=== PATIENT | male | born 1965 | race African-American/Black ===

== ENCOUNTER 2016-08-09 11:52 | Inpatient (IN) | payer BC ==
[2016-08-09 12:55] VITALS: BMI 23.5
--- NOTE | 2016-08-09 17:19 | HP ---
CIWA Score - CIWA Score Nausea/Vomitin-Mild Nausea/No Vomiting Muscle Tremors: 4-Moderate,w/Arms Extend Anxiety: 4-Mod. Anxious/Guarded Agitation: 4-Moderately Restless Paroxysmal Sweats: 1-Minimal Palms Moist Orientation: 3-Disoriented Date>2 days Tacttile Disturbances: 0-None Auditory Disturbances: 0-None Visual Disturbances: 0-None Headache: 0-None Present CIWA-Ar Total Score: 17 Admission ROS S - HPI Chief Complaint: WITHDRAWAL SX Allergies/Adverse Reactions: Allergies Allergy/AdvReac Type Severity Reaction Status Date / Time Penicillins Allergy Verified 04/18/16 19:32 History of Present Illness: 50 YEARS OLD MALE WITH LONG HISTORY OF ALCOHOL NICOTINE DEPENDENCE, HAS ASTHMA, DEPRESSION, LONGEST SOBRIETY 2 YEARS IS ADMITTED TO DETOX Exam Limitations: No Limitations - Ebola screening Have you traveled outside of the country in the last 21 days: No Have you had contact with anyone from an Ebola affected area: No Have you been sick,other than usual withdrawal symptoms: No Do you have a fever: No - Review of Systems Constitutional: Chills, Loss of Appetite, Changes in sleep, Unexplained wgt Loss EENT: reports: No Symptoms Reported Respiratory: reports: No Symptoms reported Cardiac: reports: No Symptoms Reported GI: reports: Poor Appetite, Poor Fluid Intake, Indigestion, Abdominal cramping : reports: No Symptoms Reported Musculoskeletal: reports: No Symptoms Reported Integumentary: reports: No Symptoms Reported Neuro: reports: Seizure (LAST EPISODE 2011), Tremors Endocrine: reports: No Symptoms Reported Hematology: reports: No Symptoms Reported Psychiatric: reports: Judgement Intact, Depressed Other Systems: Reviewed and Negative Patient History - Patient Medical History Hx Anemia: No Hx Asthma: Yes Hx Chronic Obstructive Pulmonary Disease (COPD): No Hx Cancer: No Hx Cardiac Disorders: No Hx Congestive Heart Failure: No Hx Hypertension: Yes (LAST DOSE "YEAR" AGO) Hx Hypercholesterolemia: No Hx Pacemaker: No HX Cerebrovascular Accident: No Hx Seizures: Yes (2011) Hx Dementia: No Hx Diabetes: No Hx Gastrointestinal Disorders: No Hx Liver Disease: No Hx Genitourinary Disorders: No Hx Sexually Transmitted Disorders: No Hx Renal Disease (ESRD): No Hx Thyroid Disease: No Hx Human Immunodeficiency Virus (HIV): No Hx Hepatitis C: No Hx Depression: No Hx Suicide Attempt: No Hx Bipolar Disorder: No Hx Schizophrenia: No - Patient Surgical History Past Surgical History: No - PPD History Previous Implant?: Yes Documented Results: Negative w/proof Implanted On Prior R Admission?: Yes Date: 04/20/16 PPD to be Administered?: No - Smoking Cessation Smoking history: Current every day smoker Have you smoked in the past 12 months: Yes Aproximately how many cigarettes per day: 3 Cigars Per Day: 0 Hx Chewing Tobacco Use: No Initiated information on smoking cessation: Yes 'Breaking Loose' booklet given: 08/09/16 - Substance & Tx. History Hx Alcohol Use: Yes Hx Substance Use: No Substance Use Type: Alcohol Hx Substance Use Treatment: Yes - Substances Abused Alcohol Route: Oral Frequency: Daily Amount used: 3 PINTS VOLKA Age of first use: 14 Date of Last Use: 08/09/16 Family Disease History - Family Disease History Family Disease History: Other: Father (NEVER MEET), Mother (), Brother ( ONLY CHILD) Admission Physical Exam BHS - Vital Signs Vital Signs: Vital Signs - 24 hr 08/09/16 12:37 Temperature 96.4 F L Pulse Rate 78 Respiratory 18 Rate Blood Pressure 145/105 - Physical General Appearance: Yes: Appropriately Dressed, Moderate Distress, Alcohol on Breath, Thin, Tremorous, Irritable, Sweating, Anxious HEENTM: Yes: Hearing grossly Normal, Normal ENT Inspection, Normocephalic, Normal Voice Respiratory: Yes: Chest Non-Tender, Lungs Clear, Normal Breath Sounds, No Respiratory Distress, No Accessory Muscle Use Neck: Yes: Supple, Trachea in good position Breast: Yes: Breasts Symetrical Cardiology: Yes: Regular Rhythm, Regular Rate, S1, S2 Abdominal: Yes: Non Tender, Soft Genitourinary: Yes: Within Normal Limits Back: Yes: Normal Inspection Musculoskeletal: Yes: full range of Motion, Gait Steady Extremities: Yes: Normal Inspection, Normal Range of Motion, Non-Tender, Tremors Neurological: Yes: Alert, Motor Strength 5/5, Normal Response, Depressed Affect Integumentary: Yes: Warm, Moist Lymphatic: Yes: Within Normal Limits - Diagnostic (1) Alcohol dependence with withdrawal Current Visit: Yes Status: Acute Qualifiers: Complication of substance-induced condition: uncomplicated Qualified Code(s): F10.230 - Alcohol dependence with withdrawal, uncomplicated (2) Nicotine dependence Current Visit: Yes Status: Acute Qualifiers: Nicotine product type: cigarettes Substance use status: uncomplicated Qualified Code(s): F17.210 - Nicotine dependence, cigarettes, uncomplicated (3) Asthma Current Visit: Yes Status: Acute Qualifiers: Asthma severity: mild persistent Asthma complication type: uncomplicated Qualified Code(s): J45.30 - Mild persistent asthma, uncomplicated (4) Hypertension Current Visit: Yes Status: Resolved Qualifiers: Hypertension type: other secondary hypertension Qualified Code(s): I15.8 - Other secondary hypertension Comment: LAST ANTIHYPERTENSANT "YEAR" AGO (5) Seizure Current Visit: Yes Status: Resolved Comment: FIRST / LAST 2011, NO TREATMENT Cleared for Admission S - Detox or Rehab [facility] Level of Care: Medically Managed Detox Regimen/Protocol: Librium S Breath Alcohol Content Breath Alcohol Content: 0.261 Urine Drug Screen - Results Drug Screen Negative: Yes
[2016-08-09] MEDS ORDERED: MAG HYDROX/AL HYDROX/SIMETH 30 ML UNIT-DOSE CUP PO PRN (17:31)
[2016-08-09] MEDS ORDERED: chlordiazePOXIDE HCL 25 MG CAPSULE PO PRN (17:31)
[2016-08-09] MEDS ORDERED: NICOTINE POLACRILEX 2 MG GUM BC PRN (17:31)
[2016-08-09] MEDS ORDERED: hydrOXYzine PAMOATE 50 MG CAPSULE (FP) PO PRN (17:31)
[2016-08-09] MEDS ORDERED: MAGNESIUM HYDROX 2400MG/30ML ORAL SUSPENSION 30 ML CUP PO PRN (17:31)
[2016-08-09] MEDS ORDERED: LOPERAMIDE HCL 2 MG CAPSULE PO PRN (17:31)
[2016-08-09] MEDS ORDERED: MAGNESIUM CITRATE 300 ML BOTTLE PO PRN (17:31)
[2016-08-09] MEDS ORDERED: P-EPHED 60MG/TRIPROLIDI 2.5MG TABLET PO PRN (17:31)
[2016-08-09] MEDS ORDERED: ACETAMINOPHEN 325 MG TABLET (FP) PO PRN (17:31)
[2016-08-09] MEDS ORDERED: NICOTINE 14 MG/24 HOURS TOPICAL PATCH TD PRN (17:31)
[2016-08-09] MEDS ORDERED: guaiFENesin/D-METHORPHAN HB 10 ML UNIT-DOSE CUPS PO PRN (17:31)
[2016-08-09] MEDS ORDERED: IBUPROFEN 400 MG TABLET (FP) PO PRN (17:31)
[2016-08-09] MEDS ORDERED: MENTHOL/PHENOL 1 EACH UD MM PRN (17:31)
[2016-08-09] MEDS ORDERED: ALBUTEROL SO4 6.7 GM HFA INHALER IH PRN (17:32)
[2016-08-09] MEDS ORDERED: chlordiazePOXIDE HCL 25 MG CAPSULE PO ONE (18:00)
[2016-08-09] MEDS: THIAMINE HCL 100 MG TABLET (FP) PO SCH (22:34)
[2016-08-09] MEDS: diphenhydrAMINE HCL 50 MG CAPSULE PO PRN (22:34)
[2016-08-09] MEDS: chlordiazePOXIDE HCL 25 MG CAPSULE PO SCH (22:35)
[2016-08-10] MEDS: chlordiazePOXIDE HCL 25 MG CAPSULE PO SCH ×4 (05:40→22:33)
[2016-08-10] MEDS: PRENATAL VITAMINS W/ FOLIC ACID TABLET (FP) PO SCH (10:20)
[2016-08-10 10:33] LABS: MCH 32.5 pg (25.7-33.7); MCHC 32.7 g/dl (32.0-35.9); MEAN CELL VOLUME 99.6 fl (80-96); MEAN PLT VOLUME 10.3 fl (7.5-11.1); PLATELET COUNT 64 K/MM3 (134-434); RDW 13.1 % (11.9-15.9); WHITE BLOOD COUNT 3.2 K/mm3 (4.0-10.0)
[2016-08-10 10:40] LABS: URINE APPEARANCE CLEAR; URINE BILIRUBIN NEGATIVE (NEGATIVE); URINE COLOR LTYELLOW; URINE GLUCOSE (UA) NEGATIVE (NEGATIVE); URINE KETONE NEGATIVE (NEGATIVE); URINE LEUK ESTERASE NEGATIVE (NEGATIVE); URINE NITRITE NEGATIVE (NEGATIVE); URINE UROBILINOGEN 4.0 E.U/dl E.U./dl (0.2-1.0)
[2016-08-10 10:47] LABS: ALBUMIN 3.7 g/dl (3.4-5.0); ANION GAP 10 (8-16); CALCIUM 8.8 mg/dL (8.5-10.1); CO2 28 mmol/L (21-32); CREATININE 1.2 mg/dL (0.7-1.3); GLUCOSE,RANDOM 82 mg/dL (74-106); SGOT/AST 350 U/L (15-37); TOT PROT 7.6 g/dl (6.4-8.2)
[2016-08-10 10:52] LABS: ALK PHOS 56 U/L (45-117); SGPT/ALT 88 U/L (12-78)
[2016-08-10 11:08] LABS: URINE BLOOD 1+ (NEGATIVE); URINE PROTEIN 1+ (NEGATIVE)
--- NOTE | 2016-08-10 11:57 | CONSULT ---
[facility] Psychiatric Consult - Data Date of interview: 08/10/16 Admission source: [facility] Identifying data: Readmission to [facility] for this 50 y/o AA male seeking detox treatment for alcohol dependence.Patient is ,a father of two, homeless (intermediate),unemployed and reportedly deprived of any source of income. Substance Abuse History: - Smoking Cessation. Smoking history: Current every day smoker. Have you smoked in the past 12 months: Yes. Aproximately how many cigarettes per day: 3. Cigars Per Day: 0. Hx Chewing Tobacco Use: No. Initiated information on smoking cessation: Yes. 'Breaking Loose' booklet given : 08/09/16. - Substance & Tx. History. Hx Alcohol Use: Yes. Hx Substance Use : No. Substance Use Type: Alcohol. Hx Substance Use Treatment: Yes. - Substances Abused. Alcohol. Route: Oral. Frequency: Daily. Amount used: 3 PINTS VOLKA. Age of first use: 14. Date of Last Use: 08/09/16. Patient confirmed. Medical History: Remarkable for bronchial asthma,hypertension and a history of withdrawal seizures (2011). Psychiatric History: Patient denies. Physical/Sexual Abuse/Trauma History: Patient denies. Additional Comment: Drug screen is negative. Mental Status Exam - Mental Status Exam Alert and Oriented to: Time, Place, Person Cognitive Function: Good Patient Appearance: Well Groomed Mood: Withdrawn, Anxious Affect: Normal Range Patient Behavior: Sedated (mild sedation), Fatigued Speech Pattern: Clear, Appropriate Voice Loudness: Normal Thought Process: Goal Oriented Thought Disorder: Not Present Hallucinations: Denies Suicidal Ideation: Denies Homicidal Ideation: Denies Insight/Judgement: Fair Sleep: Well (as per self-report) Appetite: Good Muscle strength/Tone: Normal Gait/Station: Normal Psychiatric Findings - Problem List ([place] 1, 2,3) (1) Alcohol dependence with withdrawal Current Visit: Yes Status: Acute Qualifiers: Complication of substance-induced condition: uncomplicated Qualified Code(s): F10.230 - Alcohol dependence with withdrawal, uncomplicated (2) Nicotine dependence Current Visit: Yes Status: Acute Qualifiers: Nicotine product type: cigarettes Substance use status: uncomplicated Qualified Code(s): F17.210 - Nicotine dependence, cigarettes, uncomplicated (3) Asthma Current Visit: Yes Status: Chronic Qualifiers: Asthma severity: mild persistent Asthma complication type: uncomplicated Qualified Code(s): J45.30 - Mild persistent asthma, uncomplicated (4) Hypertension Current Visit: Yes Status: Resolved Qualifiers: Hypertension type: other secondary hypertension Qualified Code(s): I15.8 - Other secondary hypertension Comment: LAST ANTIHYPERTENSANT "YEAR" AGO (5) Seizure Current Visit: Yes Status: Resolved Comment: FIRST / LAST 2011, NO TREATMENT - Initial Treatment Plan Initial Treatment Plan: Psychoeducation.Detoxification.Observation.
[2016-08-10] MEDS: cloNIDine HCL 0.1 MG TABLET PO PRN (18:29)
--- NOTE | 2016-08-10 21:47 | PN ---
[id number] 3 Anxiety: 3 Agitation: 3 Paroxysmal Sweats: 3 Orientation: 0-Oriented Tacttile Disturbances: 0-None Auditory Disturbances: 0-None Visual Disturbances: 0-None Headache: 0-None Present CIWA-Ar Total Score: 12 BHS Progress Note (SOAP) Subjective: ANXIETY,TREMORS,SWEATING,INTERRUPTED SLEEP,RESTLESS. Objective: 08/10/16 21:44 Vital Signs - 8 hr 08/10/16 08/10/16 14:43 20:09 Temperature 97.3 F L 99.2 F Pulse Rate 73 74 Respiratory 18 20 Rate Blood Pressure 145/99 146/104 Assessment: 08/10/16 21:46 withdrawal sx Plan: CONTINUE DETOX
[2016-08-10] MEDS: THIAMINE HCL 100 MG TABLET (FP) PO SCH (22:33)
[2016-08-10] MEDS: diphenhydrAMINE HCL 50 MG CAPSULE PO PRN (22:33)
[2016-08-11] MEDS: chlordiazePOXIDE HCL 25 MG CAPSULE PO SCH ×3 (05:19→17:53)
[2016-08-11] MEDS: PRENATAL VITAMINS W/ FOLIC ACID TABLET (FP) PO SCH (10:38)
--- NOTE | 2016-08-11 16:11 | PN ---
S CIWA - CIWA Score Nausea/Vomitin-Mild Nausea/No Vomiting Muscle Tremors: 4-Moderate,w/Arms Extend Anxiety: 4-Mod. Anxious/Guarded Agitation: 3 Paroxysmal Sweats: No Perspiration Orientation: 0-Oriented Tacttile Disturbances: 0-None Auditory Disturbances: 0-None Visual Disturbances: 0-None Headache: 2-Mild CIWA-Ar Total Score: 14 S Progress Note (SOAP) Subjective: Tremor, sweating, anxiety, poor sleep (benadryl ineffective, wants ambien) Objective: 08/11/16 16:08 Last Vital Signs Temp Pulse Resp BP Pulse Ox 96.2 F L 69 20 120/87 08/11/16 13:52 08/11/16 13:52 08/11/16 13:52 08/11/16 13:52 Laboratory Tests 08/10/16 08/10/16 08/10/16 07:30 07:30 07:30 WBC 3.2 L RBC 3.36 L Hgb 10.9 L Hct 33.4 L MCV 99.6 H MCHC 32.7 RDW 13.1 Plt Count 64 L D MPV 10.3 D Sodium 140 Potassium 3.9 Chloride 102 Carbon Dioxide 28 Anion Gap 10 BUN 21 H Creatinine 1.2 Creat Clearance w eGFR > 60 Random Glucose 82 Calcium 8.8 Total Bilirubin 1.0 AST 350 H D ALT 88 H D Alkaline Phosphatase 56 Total Protein 7.6 Albumin 3.7 Urine Color Urine Appearance Urine pH Ur Specific [place] Urine Protein Urine Glucose (UA) Urine Ketones Urine Blood Urine Nitrite Urine Bilirubin Urine Urobilinogen Ur Leukocyte Esterase RPR Titer Nonreactive 08/10/16 07:30 WBC RBC Hgb Hct MCV MCHC RDW Plt Count MPV Sodium Potassium Chloride Carbon Dioxide Anion Gap BUN Creatinine Creat Clearance w eGFR Random Glucose Calcium Total Bilirubin AST ALT Alkaline Phosphatase Total Protein Albumin Urine Color Ltyellow Urine Appearance Clear Urine pH 7.0 D Ur Specific [place] 1.011 Urine Protein 1+ H D Urine Glucose (UA) Negative Urine Ketones Negative Urine Blood 1+ H Urine Nitrite Negative Urine Bilirubin Negative Urine Urobilinogen 4.0 e.u/dl Ur Leukocyte Esterase Negative RPR Titer Labs noted: abnormal UA Assessment: 08/11/16 16:09 Withdrawal symptoms Noted with abnormal UA (proteinuria, hematuria) Plan: Continue detox; ambien 10mg PO qhs prn for interrupted sleep Abnormal UA: encourage to drink lots of water, repeat UA
[2016-08-11] MEDS: THIAMINE HCL 100 MG TABLET (FP) PO SCH (22:20)
[2016-08-11] MEDS: chlordiazePOXIDE 5 MG CAPSULE PO SCH (22:20)
[2016-08-11] MEDS: ZOLPIDEM TARTRATE 10 MG TABLET (PARK CARE ONLY) PO PRN (22:20)
[2016-08-12] MEDS: chlordiazePOXIDE 5 MG CAPSULE PO SCH ×3 (05:43→16:58)
[2016-08-12] MEDS: cloNIDine HCL 0.1 MG TABLET PO PRN (10:09)
[2016-08-12] MEDS: PRENATAL VITAMINS W/ FOLIC ACID TABLET (FP) PO SCH (10:09)
--- NOTE | 2016-08-12 10:45 | PN ---
BHS Progress Note (SOAP) Subjective: SWEATING,INTERRUPTED SLEEP,RESTLESS. Objective: 08/12/16 10:44 Vital Signs - 8 hr 08/12/16 08/12/16 08/12/16 03:18 06:16 10:12 Temperature 98.4 F 96.0 F L Pulse Rate 60 65 Respiratory 18 18 19 Rate Blood Pressure 135/96 142/100 Laboratory Last Values WBC 3.2 K/mm3 (4.0-10.0) L 08/10/16 07:30 RBC 3.36 M/mm3 (4.00-5.60) L 08/10/16 07:30 Hgb 10.9 GM/dL (11.7-16.9) L 08/10/16 07:30 Hct 33.4 % (35.4-49) L 08/10/16 07:30 MCV 99.6 fl (80-96) H 08/10/16 07:30 MCHC 32.7 g/dl (32.0-35.9) 08/10/16 07:30 RDW 13.1 % (11.9-15.9) 08/10/16 07:30 Plt Count 64 K/MM3 (134-434) L D 08/10/16 07:30 MPV 10.3 fl (7.5-11.1) D 08/10/16 07:30 Sodium 140 mmol/L (136-145) 08/10/16 07:30 Potassium 3.9 mmol/L (3.5-5.1) 08/10/16 07:30 Chloride 102 mmol/L (98-107) 08/10/16 07:30 Carbon Dioxide 28 mmol/L (21-32) 08/10/16 07:30 Anion Gap 10 (8-16) 08/10/16 07:30 BUN 21 mg/dL (7-18) H 08/10/16 07:30 Creatinine 1.2 mg/dL (0.7-1.3) 08/10/16 07:30 Creat Clearance w eGFR > 60 (>60) 08/10/16 07:30 Random Glucose 82 mg/dL (74-106) 08/10/16 07:30 Calcium 8.8 mg/dL (8.5-10.1) 08/10/16 07:30 Total Bilirubin 1.0 mg/dL (0.2-1.0) 08/10/16 07:30 AST 350 U/L (15-37) H D 08/10/16 07:30 ALT 88 U/L (12-78) H D 08/10/16 07:30 Alkaline Phosphatase 56 U/L (45-117) 08/10/16 07:30 Total Protein 7.6 g/dl (6.4-8.2) 08/10/16 07:30 Albumin 3.7 g/dl (3.4-5.0) 08/10/16 07:30 Urine Color Ltyellow 08/10/16 07:30 Urine Appearance Clear 08/10/16 07:30 Urine pH 7.0 (5.0-8.0) D 08/10/16 07:30 Ur Specific [place] 1.011 (1.001-1.035) 08/10/16 07:30 Urine Protein 1+ (NEGATIVE) H D 08/10/16 07:30 Urine Glucose (UA) Negative (NEGATIVE) 08/10/16 07:30 Urine Ketones Negative (NEGATIVE) 08/10/16 07:30 Urine Blood 1+ (NEGATIVE) H 08/10/16 07:30 Urine Nitrite Negative (NEGATIVE) 08/10/16 07:30 Urine Bilirubin Negative (NEGATIVE) 08/10/16 07:30 Urine Urobilinogen 4.0 e.u/dl E.U./dl (0.2-1.0) 08/10/16 07:30 Ur Leukocyte Esterase Negative (NEGATIVE) 08/10/16 07:30 RPR Titer Nonreactive (NONREACTIVE) 08/10/16 07:30 LABS NOTED AST 350 & ALT 88, REPEAT ORDERED Assessment: 08/12/16 10:45 WITHDRAWAL SX. Plan: CONTINUE DETOX
[2016-08-12 20:53] LABS: URINE APPEARANCE CLEAR; URINE BILIRUBIN NEGATIVE (NEGATIVE); URINE BLOOD TRACE-INTA (NEGATIVE); URINE COLOR LT. YELLOW; URINE GLUCOSE (UA) NEGATIVE (NEGATIVE); URINE KETONE NEGATIVE (NEGATIVE); URINE LEUK ESTERASE NEGATIVE (NEGATIVE); URINE NITRITE NEGATIVE (NEGATIVE); URINE PROTEIN NEGATIVE (NEGATIVE); URINE UROBILINOGEN 1.0 E.U/dl E.U./dl (0.2-1.0)
[2016-08-12] MEDS: chlordiazePOXIDE HCL 10 MG CAPSULE PO SCH (22:22)
[2016-08-12] MEDS: THIAMINE HCL 100 MG TABLET (FP) PO SCH (22:22)
[2016-08-12] MEDS: ZOLPIDEM TARTRATE 10 MG TABLET (PARK CARE ONLY) PO PRN (22:23)
[2016-08-13] MEDS ORDERED: diphenhydrAMINE HCL 25 MG CAPSULE (FP) PO ONE (01:07)
[2016-08-13] MEDS: diphenhydrAMINE HCL 50 MG CAPSULE PO PRN (01:08)
[2016-08-13] MEDS: chlordiazePOXIDE HCL 10 MG CAPSULE PO SCH (05:45)
[2016-08-13 06:20] VITALS: BP 151/97; PULSE 59; TEMP 98.1
--- NOTE | 2016-08-13 09:53 | DS ---
[facility] Detox Discharge Summary Admission Date: 08/09/16 Discharge Date: 08/13/16 - History Present History: Alcohol Dependence Additional Comments: NONE Pertinent Past History: ??HTN ASTHMA ??SEIZURE DISORDER - Physical Exam Results Vital Signs: Vital Signs Temperature 98.1 F 08/13/16 06:19 Pulse Rate 59 L 08/13/16 06:19 Respiratory Rate 18 08/13/16 06:19 Blood Pressure 151/97 08/13/16 06:19 O2 Sat by Pulse Oximetry (%) Pertinent Admission Physical Exam Findings: WITHDRAWAL SX - Treatment Hospital Course: Detox Protocol Followed, Detoxed Safely, Responded well, Discharged Condition Good - Medication Discharge Medications: Ambulatory Orders Albuterol Sulfate Inhaler - [Ventolin Hfa Inhaler -] 2 inh PO Q4H 04/18/16 - Diagnosis (1) Alcohol dependence with withdrawal Current Visit: Yes Status: Acute Qualifiers: Complication of substance-induced condition: uncomplicated Qualified Code(s): F10.230 - Alcohol dependence with withdrawal, uncomplicated (2) Nicotine dependence Current Visit: Yes Status: Chronic Qualifiers: Nicotine product type: cigarettes Substance use status: uncomplicated Qualified Code(s): F17.210 - Nicotine dependence, cigarettes, uncomplicated (3) Asthma Current Visit: Yes Status: Chronic Qualifiers: Asthma severity: mild persistent Asthma complication type: uncomplicated Qualified Code(s): J45.30 - Mild persistent asthma, uncomplicated (4) Hypertension Current Visit: Yes Status: Resolved Qualifiers: Hypertension type: other secondary hypertension Qualified Code(s): I15.8 - Other secondary hypertension (5) Seizure Current Visit: Yes Status: Resolved - AMA Did Patient Leave Against Medical Advice: No
--- NOTE | 2016-08-14 09:43 | EKG ---
Test Reason : Blood Pressure : / mmHG Vent. Rate : 067 BPM Atrial Rate : 067 BPM P-R Int : 156 ms QRS Dur : 084 ms QT Int : 436 ms P-R-T Axes : 031 -31 -12 degrees QTc Int : 460 ms NORMAL SINUS RHYTHM LEFT AXIS DEVIATION ABNORMAL ECG WHEN COMPARED WITH ECG OF 25-AUG-2016 07:02, NO SIGNIFICANT CHANGE WAS FOUND Confirmed by ROYA QUEVEDO MD ([id number]) on 08/14/2016 9:42:36 AM Referred By: Confirmed By:ROYA QUEVEDO MD
--- NOTE | 2016-08-14 09:43 | EKG ---
Test Reason : Blood Pressure : / mmHG Vent. Rate : 068 BPM Atrial Rate : 068 BPM P-R Int : 162 ms QRS Dur : 086 ms QT Int : 432 ms P-R-T Axes : 044 -27 -55 degrees QTc Int : 459 ms NORMAL SINUS RHYTHM T WAVE ABNORMALITY, CONSIDER INFERIOR ISCHEMIA ABNORMAL ECG WHEN COMPARED WITH ECG OF 10-AUG-2016 07:02, T WAVE INVERSION MORE EVIDENT IN INFERIOR LEADS Confirmed by EMY WALDRON, ROYA ([id number]) on 08/14/2016 9:42:59 AM Referred By: Confirmed By:ROYA QUEVEDO MD
--- NOTE | 2016-08-14 10:19 | EKG ---
Test Reason : Blood Pressure : / mmHG Vent. Rate : 069 BPM Atrial Rate : 069 BPM P-R Int : 154 ms QRS Dur : 084 ms QT Int : 418 ms P-R-T Axes : 034 -32 -09 degrees QTc Int : 447 ms NORMAL SINUS RHYTHM LEFT AXIS DEVIATION ABNORMAL ECG WHEN COMPARED WITH ECG OF 24-AUG-2016 19:13, T WAVE INVERSION LESS EVIDENT IN INFERIOR LEADS Confirmed by EMY WALDRON, ROYA ([id number]) on 08/14/2016 10:18:58 AM Referred By: Confirmed By:ROYA QUEVEDO MD
== END 2016-08-13 09:00 | disposition home or self-care (01) | DRG 775 ==
LOC: YASAS 11:52 → Y3N 18:18
PROVIDERS: ADMIT Internal Medicine; ATTEND Internal Medicine
PROC: HZ2ZZZZ Detoxification Services for Substance Abuse Treatment (ICD-10-PCS; principal; 2016-08-09)
DX: F10.230 Alcohol dependence with withdrawal, uncomplicated (principal); F17.210 Nicotine dependence, cigarettes, uncomplicated; J45.30 Mild persistent asthma, uncomplicated; I15.8 Other secondary hypertension; R80.9 Proteinuria, unspecified; R31.9 Hematuria, unspecified; Z86.69 Personal history of other diseases of the nervous system and sense organs
CPT/HCPCS: 36415; 80053; 81003; 81015; 85027; 86593; 93005; 93010